=== PATIENT | female | born 1980 | race Caucasian/White ===

== ENCOUNTER 2016-11-18 16:34 | Emergency (ER) | payer MEDICAID ==
--- NOTE | 2016-11-18 18:46 | Emergency Department Report ---
ED Female HPI - General Chief complaint: Vaginal Bleeding Stated complaint: VAGINAL BLEEDING Time Seen by Provider: 11/18/16 18:30 Source: patient, family, EMS (ems notes not available at time of chart dictation), RN notes reviewed Mode of arrival: Stretcher Limitations: No Limitations - History of Present Illness Initial comments: This is a 36-year-old female, previously unknown to me. She is 7, para 4. Reports last menstrual period was September 29. Patient had an outpatient termination of at the beginning of October, at [facility]. She reports 2 days of spotting thereafter, and then no vaginal bleeding. She reports that for the past week she has had minimal vaginal spotting. She then states today that around 2:30 PM she developed some vaginal bleeding. It is associated with lower abdominal cramping which is described as a sensation of contractions, and back pain. No fevers or chills. No chest pain or shortness of breath. No irritative or obstructive urinary symptoms. Vaginal bleeding is constant. Has had no exacerbating or relieving factors. No history of trauma. MD Complaint: vaginal bleeding, pelvic pain -: Sudden Radiation: LLQ, RLQ Severity: moderate Quality: cramping Consistency: intermittent Improves with: none Worsens with: none Are you Now?: No (s/p termination) Associated Symptoms: vaginal bleeding, abdominal pain - Related Data Sexually active: Yes Previous Rx's Medication Instructions Recorded Last Taken Type HYDROcodone/APAP 5-325 [[place] 1 each PO Q6HR PRN #6 tablet 11/18/16 Unknown Rx 5/325] Misoprostol [Cytotec] 400 mcg PO Q4HR #2 tablet 11/18/16 Unknown Rx Ondansetron [Zofran Odt] 4 mg PO QID PRN #10 tab.rapdis 11/18/16 Unknown Rx Allergies Allergy/AdvReac Type Severity Reaction Status Date / Time metoclopramide HCl Allergy Unknown Verified 09/29/14 12:52 [From Suad] ED Review of Systems ROS: Stated complaint: VAGINAL BLEEDING Other details as noted in HPI Constitutional: denies: fever Eyes: denies: vision change ENT: denies: epistaxis Respiratory: denies: cough Cardiovascular: denies: chest pain Gastrointestinal: abdominal pain Genitourinary: abnormal menses Musculoskeletal: back pain Skin: as per HPI Neurological: denies: weakness Psychiatric: as per HPI ED Past Medical Hx - Past Medical History Previous Medical History?: No Hx Hypertension: No Hx Diabetes: No Hx Deep Vein Thrombosis: No Hx Renal Disease: No Hx Sickle Cell Disease: No Hx Seizures: No Hx Asthma: No Hx HIV: No - Surgical History Past Surgical History?: No - Social History Smoking Status: Never Smoker Substance Use Type: None - Medications Home Medications: Home Medications Medication Instructions Recorded Confirmed Last Taken Type HYDROcodone/APAP 5-325 [[place] 1 each PO Q6HR PRN #6 tablet 11/18/16 Unknown Rx 5/325] Misoprostol [Cytotec] 400 mcg PO Q4HR #2 tablet 11/18/16 Unknown Rx Ondansetron [Zofran Odt] 4 mg PO QID PRN #10 tab.rapdis 11/18/16 Unknown Rx ED Physical Exam - General Limitations: No Limitations General appearance: alert, in no apparent distress - Head Head exam: Present: atraumatic, normocephalic - Eye Eye exam: Present: normal appearance, EOMI. Absent: nystagmus - ENT ENT exam: Present: normal exam, normal orophraynx, mucous membranes moist, normal external ear exam - Neck Neck exam: Present: normal inspection, full ROM. Absent: tenderness, meningismus - Respiratory Respiratory exam: Present: normal lung sounds bilaterally. Absent: respiratory distress, wheezes, rales, rhonchi, stridor, chest wall tenderness - Cardiovascular Cardiovascular Exam: Present: regular rate, normal rhythm. Absent: bradycardia , tachycardia, irregular rhythm, systolic murmur, diastolic murmur, rubs, gallop - GI/Abdominal GI/Abdominal exam: Present: soft, normal bowel sounds. Absent: distended, tenderness, guarding, rebound, rigid, pulsatile mass - External exam: Present: normal external exam Speculum exam: Present: vaginal bleeding Bi-manual exam: Present: normal bi-manual exam, other (during the gynecologic examination, I am escorted by nurse Sharon shah). Absent: cervical motion tendernes, adnexal tenderness, adnexal mass - Extremities Exam Extremities exam: Present: normal inspection, full ROM, normal capillary refill. Absent: tenderness, pedal edema, joint swelling, calf tenderness - Back Exam Back exam: Present: normal inspection, full ROM. Absent: tenderness, CVA tenderness (R), CVA tenderness (L), muscle spasm, paraspinal tenderness, vertebral tenderness - Neurological Exam Neurological exam: Present: alert, oriented X3, other (Extraocular movements intact. Tongue midline. No facial droop. Facial sensation intact to light touch in the V1, V2, V3 distribution bilaterally. 5 and 5 strength in 4 extremities.. Sensation is intact to light touch in 4 extremities.). Absent: motor sensory deficit - Psychiatric Psychiatric exam: Present: normal affect, normal mood - Skin Skin exam: Present: warm, dry, intact, normal color. Absent: rash ED Course Vital Signs 11/18/16 11/18/16 11/18/16 17:24 18:27 19:10 Temperature 98.1 F 98.8 F Pulse Rate 72 74 Respiratory 16 16 18 Rate Blood Pressure 143/92 Blood Pressure 134/72 [Left] O2 Sat by Pulse 99 100 100 Oximetry 11/18/16 11/18/16 11/18/16 19:51 20:32 20:35 Temperature 98.7 F Pulse Rate 75 Respiratory 20 20 20 Rate Blood Pressure Blood Pressure 130/70 [Left] O2 Sat by Pulse 100 Oximetry 11/18/16 11/18/16 21:05 22:39 Temperature Pulse Rate Respiratory 20 20 Rate Blood Pressure Blood Pressure [Left] O2 Sat by Pulse Oximetry - Reevaluation(s) Reevaluation #1: 11/18/16 19:50 Differential diagnosis: Dysfunctional uterine bleeding, , retained products of conception, ectopic Assessment and plan: 36-year-old female with sudden onset of vaginal bleeding, termination electively approximately one month ago. Does have some mild active bleeding from the cervix, this was suctioned aggressively, no intravaginal lacerations are noted. Hemodynamically stable. H&H stable. hCG pending. Pelvic ultrasound is pending. Reevaluation #2: 11/18/16 23:10 ultrasound suggest retained products of conception. patient is seen an examined by [facility], Dr Lara after I contacted him. He states patient does not require operative intervention at this time. he recommends cytotec 400 mcg every 4 hours for 3 doses. First dose is ordered now. Patient will be discharged with additional prescriptions for Cytotec, pain medication, nausea medication. The patient is instructed to follow up within 48 hours with the outpatient physician who performed her termination of . The importance of bed rest, pelvic rest , and return precautions are reviewed with the patient and her significant other. ED Medical Decision Making - Lab Data Result diagrams: 11/18/16 19:15 Vital Signs 11/18/16 11/18/16 11/18/16 17:24 18:27 19:10 Temperature 98.1 F 98.8 F Pulse Rate 72 74 Respiratory 16 16 18 Rate Blood Pressure 143/92 Blood Pressure 134/72 [Left] O2 Sat by Pulse 99 100 100 Oximetry Lab Results 11/18/16 11/18/16 Range/Units 18:40 19:15 WBC 6.1 (4.5-11.0) K/mm3 RBC 4.01 (3.65-5.03) M/mm3 Hgb 12.4 (10.1-14.3) gm/dl Hct 37.7 (30.3-42.9) % MCV 94 (79-97) fl MCH 31 (28-32) pg MCHC 33 (30-34) % RDW 13.3 (13.2-15.2) % Plt Count 232 (140-440) K/mm3 Lymph % (Auto) 33.6 (13.4-35.0) % [place] % (Auto) 5.8 (0.0-7.3) % Eos % (Auto) 2.4 (0.0-4.3) % Baso % (Auto) 0.4 (0.0-1.8) % Lymph # 2.0 (1.2-5.4) K/mm3 [place] # 0.4 (0.0-0.8) K/mm3 Eos # 0.1 (0.0-0.4) K/mm3 Baso # 0.0 (0.0-0.1) K/mm3 Seg Neutrophils % 57.8 (40.0-70.0) % Seg Neutrophils # 3.5 (1.8-7.7) K/mm3 Urine Color Yellow (Yellow) Urine Turbidity Clear (Clear) Urine pH 7.0 (5.0-7.0) Ur Specific [place] 1.017 (1.003-1.030) Urine Protein 30 mg/dl (Negative) mg/dL Urine Glucose (UA) Neg (Negative) mg/dL Urine Ketones Neg (Negative) mg/dL Urine Blood Lg (Negative) Urine Nitrite Neg (Negative) Urine Bilirubin Neg (Negative) Urine Urobilinogen < 2.0 (<2.0) mg/dL Ur Leukocyte Esterase Neg (Negative) Urine WBC (Auto) 3.0 (0.0-6.0) /HPF Urine RBC (Auto) > 182.0 (0.0-6.0) /HPF Urine Mucus Few /HPF - Radiology Data Radiology results: report reviewed ? retained POC on ultrasound Critical care attestation.: If time is entered above; I have spent that time in minutes in the direct care of this critically ill patient, excluding procedure time. ED Disposition Clinical Impression: Vaginal bleeding Disposition: PATIENT REGISTERED,NO TRIAGE Is pt being admited?: No Does the pt Need Aspirin: No Condition: Stable Instructions: Dilation and Curettage (ED) Additional Instructions: Take the pain medication, nausea medication, Cytotec medication as directed. Follow up within 48 hours with the outpatient [facility] which performed your initial termination of beginning of October. Rest and avoid heavy lifting. Avoid strenuous physical activity. Avoid sexual activity. Return to the ER right away with new pain, worsened pain, migration of pain, bleeding more than 2 pads soaked through and through per hour, fevers or chills, intractable nausea or vomiting, and inability to tolerate liquid feeds. Prescriptions: HYDROcodone/APAP 5-325 [[place] 5/325] 1 each PO Q6HR PRN #6 tablet PRN Reason: Pain Misoprostol [Cytotec] 400 mcg PO Q4HR #2 tablet Ondansetron [Zofran Odt] 4 mg PO QID PRN #10 tab.rapdis PRN Reason: Nausea Referrals: PRIMARY CAREMD [Primary Care Provider] - 3-5 Days [facility] [Provider Group] - 3-5 Days [facility] [Provider Group] - 3-5 Days
[2016-11-18] MEDS: MORPHINE IV ONE ×2 (19:21→20:35)
[2016-11-18] MEDS: NACL 0.9% 1000 ML 1,000 ML IV ONE (19:22)
[2016-11-18 19:29] LABS: Bilirubin,Urine NEG (Negative); Blood,Urine LG (Negative); Ketones,Urine NEG (Negative); Leukocyte Esterase,Urine NEG (Negative); Mucus,Urine FEW /HPF; Nitrite,Urine NEG (Negative); Urobilinogen,Urine < 2.0 mg/dL (<2.0)
[2016-11-18 19:33] LABS: RBC,Urine > 182.0 /HPF (0.0-6.0)
[2016-11-18 19:36] LABS: Basophils % (Auto) 0.4 % (0.0-1.8); Eosinophils % (Auto) 2.4 % (0.0-4.3); Hematocrit 37.7 % (30.3-42.9); Hemoglobin 12.4 gm/dl (10.1-14.3); Mean Corpuscular HGB Conc 33 % (30-34); Mean Corpuscular Hemoglobin 31 pg (28-32); Mean Corpuscular Volume 94 fl (79-97); Platelet Count 232 K/mm3 (140-440); Red Blood Count 4.01 M/mm3 (3.65-5.03); Red Cell Distribution Width 13.3 % (13.2-15.2); White Blood Count 6.1 K/mm3 (4.5-11.0)
[2016-11-18] MEDS ORDERED: MORPHINE ONE (20:29)
--- NOTE | 2016-11-18 22:03 | Ultrasound Report ---
FINAL REPORT PROCEDURE: Transabdominal pelvic ultrasound. TECHNIQUE: Real-time transabdominal sonography in multiple planes of pelvis was performed with image documentation. This examination was performed without Doppler. Vascular abnormalities, including ovarian torsion, will not be detectable without Doppler evaluation. CPT 98518 HISTORY: vag bleed ? retained POC. Positive test. COMPARISON: Transvaginal pelvic ultrasound also performed today. FINDINGS: This report was generated utilizing images from both transabdominal and transvaginal pelvic ultrasound both of which were performed today. There is heterogeneous echogenicity seen in the endometrial canal. The endometrial canal measures up to 2.9 centimeter in thickness. There is increased flow seen in the anterior myometrium with color Doppler imaging. No masses are seen in the uterus. No definite gestational sac pole or heartbeat are visualized. There is no fluid seen in the cul-de-sac. Small hypoechoic nodules seen in the right ovary measuring 1.4 centimeter. With color Doppler imaging there is no increased flow surrounding this nodule. The right ovary otherwise is unremarkable measuring 2.5 x 1.5 x 2.1 centimeter. The left ovary is not clearly visualized. No abnormal adnexal masses are seen on the left. IMPRESSION: Abnormally thickened endometrial canal with heterogeneous material as described. Retained products of conception are suspected. I do not see evidence of a living intrauterine . Nonspecific hypoechoic nodule right ovary as described. Left ovary was not visualized. Ectopic cannot be entirely excluded.
--- NOTE | 2016-11-18 22:04 | Ultrasound Report ---
FINAL REPORT PROCEDURE: Transvaginal pelvic ultrasound TECHNIQUE: Real-time transvaginal sonography of the uterus, placenta, amniotic fluid, adnexa, and fetus was performed with image documentation. Measurements were obtained to determine age/size. M-mode Doppler was used to document heartbeat. CPT 11348 HISTORY: vag bleed ? retained POC COMPARISON: No prior studies are available for comparison. FINDINGS: This report was generated utilizing images from both transabdominal and transvaginal pelvic ultrasound both of which were performed today. There is heterogeneous echogenicity seen in the endometrial canal. The endometrial canal measures up to 2.9 centimeter in thickness. There is increased flow seen in the anterior myometrium with color Doppler imaging. No masses are seen in the uterus. No definite gestational sac pole or heartbeat are visualized. There is no fluid seen in the cul-de-sac. Small hypoechoic nodules seen in the right ovary measuring 1.4 centimeter. With color Doppler imaging there is no increased flow surrounding this nodule. The right ovary otherwise is unremarkable measuring 2.5 x 1.5 x 2.1 centimeter. The left ovary is not clearly visualized. No abnormal adnexal masses are seen on the left. IMPRESSION: Abnormally thickened endometrial canal with heterogeneous material as described. Retained products of conception are suspected. I do not see evidence of a living intrauterine . Nonspecific hypoechoic nodule right ovary as described. Left ovary was not visualized. Ectopic cannot be entirely excluded.
[2016-11-18] MEDS: TORADOL IV ONE (22:39)
--- NOTE | 2016-11-18 23:14 | Short Stay Summary ---
Short Stay Documentation Date of service: 11/18/16 Narrative H&P: C/O: Vaginal bleeding Called to see this 36-year-old presents with the above complaints and issues. Essential history patient status post TAB at [facility] on 10/19/2016 at ~ 7 wks gestation. Return to see the provider on 11/07/2016 and was informed beta-hCG was still elevated, assessed and discharged home. Returns today due to onset of vaginal bleeding earlier in the afternoon which progressively increased. The ED today, her H&H is 12/38. Vitals are stable with pulse 75, hCG Quant is ~ 2600 Perineum is dry with no active bleeding noted. Gynhx:none Medhx:None Sughx:C-S # 4 Meds:none All:NKDA:NKDA Fshx: no smoking A: Retaimned POC -stable with no active bleeding P: -Discussed surgical or conservative care -As patient currently not bleeding, vitals and hemoglobin stable advised Cytotec 400 g Q4 x 3 doses -She will follow up with primary care physician who performed the procedure iin the AM - History Past Medical History: No medical history Past Surgical History: (# 4) Social history: , full code, no smoking, no alcohol abuse, no prescription drug abuse, no IV drug use - Allergies and Medications Current Medications: Allergies metoclopramide HCl [From Reglan] Allergy (Verified 09/29/14 12:52) Unknown Home Medications Medication Instructions Recorded Confirmed Last Taken Type No Known Home Medications [No 11/18/16 11/18/16 Unknown History Reported Home Medications] - Physical exam General appearance: no acute distress, well-nourished, obese Lungs: Clear to auscultation, Normal air movement Heart: Regular rate, Normal S1, Normal S2 Gastrointestinal: normal, normoactive bowel sounds, no tenderness, no distended , no masses, no guarding, no costovertebral Female Genitourinary: normal Extremities: no ischemia - Disposition Condition at discharge: Stable Short Stay Discharge Plan Follow up with: PRIMARY CARE, [Primary Care Provider] - 3-5 Days
[2016-11-18] MEDS: CYTOTEC PO ONE (23:40)
[2016-11-19 00:16] VITALS: BP 128/68
== END 2016-11-19 00:33 | disposition left against medical advice (07) ==
LOC: ED 16:34
DX: N93.9 Abnormal uterine and vaginal bleeding, unspecified (principal); R10.2 Pelvic and perineal pain; Z88.8 Allergy status to other drugs, medicaments and biological substances
CPT/HCPCS: 36415; 76801; 76817; 81001; 84702; 85025; 86850; 86900; 86901; 96361; 96374; 96375; 96376; 99285; J1885; J2270; J7030

== ENCOUNTER 2018-05-24 08:09 | Emergency (ER) | payer MEDICAID, OTHER ==
[2018-05-24 08:21] VITALS: BP 118/65
[2018-05-24 09:06] LABS: Bilirubin,Urine NEG (Negative); Blood,Urine LG (Negative); Color,Urine Yellow (Yellow); Mucus,Urine FEW /HPF
[2018-05-24 09:10] LABS: HCG Qualitative,Urine Negative (Negative); RBC,Urine > 182.0 /HPF (0.0-6.0); WBC,Urine > 182.0 /HPF (0.0-6.0)
--- NOTE | 2018-05-24 09:46 | Emergency Department Report ---
ED Female HPI - General Chief complaint: Urogenital-Female Stated complaint: PRESSURE/ FREQUENT URINATION Time Seen by Provider: 05/24/18 08:56 Source: patient Mode of arrival: Ambulatory Limitations: No Limitations - History of Present Illness Initial comments: This is 37-year-old female here reports that she is having burning with urination with some blood in her urine. Denies any back pain. Denies any nausea vomiting or abdominal pain. Past medical history is negative. She denies any fever or chills. Last menstrual period was 04/12/2018. She says she has had a urinary tract infection a long time ago with similar symptoms without any bleeding. Denies any history of kidney stones. 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 Pain on urination otherwise negative. MD Complaint: dysuria, other (blood in urine) Onset/Timin -: days(s) Severity scale (0 -10): 0 Quality: burning Consistency: intermittent Worsens with: urination Are you Now?: No Last Menstrual Period: 04/12/18 EDC: 01/17/19 Associated Symptoms: dysuria, hematuria. denies: vaginal discharge, vaginal bleeding, abdominal pain, nausea/vomiting, fever/chills, headaches, loss of appetite, rash, seizure, shortness of breath, syncope, weakness - Related Data Sexually active: Yes Previous Rx's Medication Instructions Recorded Last Taken Type HYDROcodone/APAP 5-325 [[place] 1 each PO Q6HR PRN #6 tablet 11/18/16 Unknown Rx 5/325] Misoprostol [Cytotec] 400 mcg PO Q4HR #2 tablet 11/18/16 Unknown Rx Ondansetron [Zofran Odt] 4 mg PO QID PRN #10 tab.rapdis 11/18/16 Unknown Rx Nitrofurantoin [place]/M-Cryst 100 mg PO Q12HR 7 Days #14 capsule 05/24/18 Unknown Rx [Macrobid CAP] Phenazopyridine [Pyridium] 100 mg PO TID PRN 3 Days #9 tab 05/24/18 Unknown Rx Allergies Allergy/AdvReac Type Severity Reaction Status Date / Time metoclopramide HCl Allergy Unknown Verified 09/29/14 12:52 [From Reglan] ED Review of Systems ROS: Stated complaint: PRESSURE/ FREQUENT URINATION Other details as noted in HPI Constitutional: denies: chills, fever Eyes: denies: eye pain ENT: denies: throat pain Respiratory: denies: cough, shortness of breath, wheezing Cardiovascular: denies: chest pain, palpitations, edema, syncope Gastrointestinal: denies: abdominal pain, nausea, vomiting, diarrhea, constipation, hematemesis, melena, hematochezia Genitourinary: urgency, dysuria, frequency, hematuria, abnormal menses. denies : discharge, dyspareunia Musculoskeletal: denies: back pain, joint swelling, arthralgia Skin: denies: rash, lesions Neurological: denies: headache ED Past Medical Hx - Past Medical History Previous Medical History?: No Hx Hypertension: No Hx Diabetes: No Hx Deep Vein Thrombosis: No Hx Renal Disease: No Hx Sickle Cell Disease: No Hx Seizures: No Hx Asthma: No Hx HIV: No - Surgical History Past Surgical History?: No - Family History Family history: hypertension - Social History Smoking Status: Never Smoker Substance Use Type: None - Medications Home Medications: Home Medications Medication Instructions Recorded Confirmed Last Taken Type HYDROcodone/APAP 5-325 [[place] 1 each PO Q6HR PRN #6 tablet 11/18/16 Unknown Rx 5/325] Misoprostol [Cytotec] 400 mcg PO Q4HR #2 tablet 11/18/16 Unknown Rx Ondansetron [Zofran Odt] 4 mg PO QID PRN #10 tab.rapdis 11/18/16 Unknown Rx Nitrofurantoin [place]/M-Cryst 100 mg PO Q12HR 7 Days #14 capsule 05/24/18 Unknown Rx [Macrobid CAP] Phenazopyridine [Pyridium] 100 mg PO TID PRN 3 Days #9 tab 05/24/18 Unknown Rx ED Physical Exam - General Limitations: No Limitations General appearance: alert, in no apparent distress - Head Head exam: Present: atraumatic, normocephalic, normal inspection - Eye Eye exam: Present: normal appearance, PERRL, EOMI. Absent: nystagmus Pupils: Present: normal accommodation - ENT ENT exam: Present: normal exam, normal orophraynx, mucous membranes moist - Neck Neck exam: Present: normal inspection, full ROM. Absent: tenderness, lymphadenopathy - Respiratory Respiratory exam: Present: normal lung sounds bilaterally. Absent: respiratory distress, chest wall tenderness - Cardiovascular Cardiovascular Exam: Present: normal rhythm, bradycardia, normal heart sounds. Absent: systolic murmur, diastolic murmur - GI/Abdominal GI/Abdominal exam: Present: soft, normal bowel sounds. Absent: distended, tenderness, guarding, rebound, rigid, organomegaly, mass, bruit, pulsatile mass , hernia - Extremities Exam Extremities exam: Present: normal inspection, full ROM, normal capillary refill , other (No cce. + 2 pulses in all extremities, no neurovascular compromise). Absent: tenderness, pedal edema, joint swelling, calf tenderness - Back Exam Back exam: Present: normal inspection, other (ambulates without any difficulties ). Absent: full ROM, tenderness, CVA tenderness (R), CVA tenderness (L), muscle spasm, paraspinal tenderness, vertebral tenderness, rash noted - Neurological Exam Neurological exam: Present: alert, oriented X3, normal gait - Psychiatric Psychiatric exam: Present: normal affect, normal mood - Skin Skin exam: Present: warm, dry, intact, normal color. Absent: rash ED Course Vital Signs 05/24/18 08:17 Temperature 98.1 F Pulse Rate 57 L Respiratory 16 Rate Blood Pressure 118/65 O2 Sat by Pulse 100 Oximetry - Reevaluation(s) Reevaluation #1: 05/24/18 10:12 She received Rocephin 1 g IM for hemorrhagic cystitis. No adverse reaction. ED Medical Decision Making - Lab Data Lab Results 05/24/18 Range/Units 08:28 Urine Color Yellow (Yellow) Urine Turbidity Cloudy (Clear) Urine pH 6.0 (5.0-7.0) Ur Specific [place] 1.018 (1.003-1.030) Urine Protein 100 mg/dl (Negative) mg/dL Urine Glucose (UA) Neg (Negative) mg/dL Urine Ketones Neg (Negative) mg/dL Urine Blood Lg (Negative) Urine Nitrite Neg (Negative) Urine Bilirubin Neg (Negative) Urine Urobilinogen 2.0 (<2.0) mg/dL Ur Leukocyte Esterase Lg (Negative) Urine WBC (Auto) > 182.0 H (0.0-6.0) /HPF Urine RBC (Auto) > 182.0 (0.0-6.0) /HPF U Epithel Cells (Auto) < 1.0 (0-13.0) /HPF Urine WBC Clumps 1+ /HPF Urine Mucus Few /HPF Urine HCG, Qual Negative (Negative) Urine culture pending - Medical Decision Making This is a 37-year-old female who reports that she is having urinary burning and pressure with urinating. She said this is gone on for 2 days and she just started a new job and does not always get a chance to urinate when she gets flares. She reports that she saw some blood in her urine and her last menstrual period was 04/12/2018. She denies any abdominal back pain. Denies any nausea vomiting diarrhea or fever or chills. She is here to be evaluated. I examined patient and her physical exam is normal. She has no CVA or abdominal tenderness. Urinalysis shows that she has a large amount of leukocyte Estrace and blood, greater than 182 white blood cells and red blood cell with white blood cell in clumps. There are no mention of bacteria. Urine is cloudy. She has some protein in her urine and a test is negative. Urine culture sent. I discussed the patient laboratory findings and discussed with her that she has a bladder infection. I discussed with her that she needs to contact her primary care physician and schedule an appointment for repeat urinalysis and 7-10 days. She was given Rocephin 1 g IM in the emergency room. A/P 1: Dysuria:/Hematuria-Discharged home on Pyridium for burning. UA with blood, white blood cell, large leukocyte esterase, red blood cell. Culture sent 1: Hemorrhagic cystitis-patient started on Rocephin 1 g I am emergency room and will be discharged home on Macrobid Patient educated and diagnosis, laboratory study, follow-up, to increase her water intake and to go to the bathroom when she gets the urge to go. Also educated her on her medication. Discharge home with prescription for Pyridium and Macrobid. Patient to follow up with her primary care physician in 7-10 days for repeat urinalysis. She is stable at present and she is not having any burning at present. Critical care attestation.: If time is entered above; I have spent that time in minutes in the direct care of this critically ill patient, excluding procedure time. ED Disposition Clinical Impression: Dysuria, Hemorrhagic cystitis Disposition: - TO HOME OR SELFCARE Is pt being admited?: No Does the pt Need Aspirin: No Condition: Stable Instructions: Urinary Tract Infection in Women (ED), Acute Hematuria (ED), Dysuria (ED) Additional Instructions: Please follow-up with your primary care physician in 3-5 days and if he do not have one you can follow-up with outside Medical Center. He will need to have a repeat urinalysis in 7-10 days. Increase her fluid intake to include mostly water and avoid carbonated beverages. Take antibiotics as prescribed Take Pyridium for urinary burning If bleed and increase, please return to the emergency room TANI Prescriptions: Phenazopyridine [Pyridium] 100 mg PO TID PRN 3 Days #9 tab PRN Reason: Urinary burning Referrals: PRIMARY CARE,MD [Primary Care Provider] - 3-5 Days Forms: Work/School Release Form(ED)
[2018-05-24] MEDS ORDERED: XYLOCAINE 1% MPF 5 mL INFILTRATI ONE (10:06)
[2018-05-24] MEDS ORDERED: ROCEPHIN IM STA (10:06)
== END 2018-05-24 10:37 | disposition home or self-care (01) ==
LOC: ED 08:09
DX: R30.0 Dysuria (principal); N30.91 Cystitis, unspecified with hematuria; Z88.8 Allergy status to other drugs, medicaments and biological substances
CPT/HCPCS: 81001; 81025; 96372; 99283; J0696; 87086

== ENCOUNTER 2019-10-15 12:50 | Emergency (ER) | payer MEDICAID, OTHER, SELFPAY ==
[2019-10-15] MEDS ORDERED: IBUPROFEN 600 MG TAB PO ONE (13:26)
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
[2019-10-15 18:43] VITALS: BP 140/76
== END 2019-10-15 19:10 | disposition home or self-care (01) ==
LOC: ED 12:50
DX: T58.91XA Toxic effect of carbon monoxide from unspecified source, accidental (unintentional), initial encounter (principal); Y92.89 Other specified places as the place of occurrence of the external cause
CPT/HCPCS: 94760; 99284

== ENCOUNTER 2022-05-16 15:59 | Outpatient (CLI) | payer BC ==
[2022-05-16 16:49] LABS: Hematocrit 43.2 % (30.3-42.9); Hemoglobin 14.3 gm/dl (10.1-14.3); Mean Corpuscular HGB Conc 33 % (30-34); Mean Corpuscular Volume 98 fl (79-97); Platelet Count 254 K/mm3 (140-440); Red Blood Count 4.42 M/mm3 (3.65-5.03); Red Cell Distribution Width 13.8 % (13.2-15.2)
== END 2022-05-16 16:00 | disposition home or self-care (01) ==
LOC: LAB 15:59
PROVIDERS: ATTEND Specialist
DX: M54.50 Low back pain, unspecified (principal)
CPT/HCPCS: 36415; 85027